=== PATIENT | female | born 1980 | race Hispanic/Latino ===

== ENCOUNTER 2019-08-28 04:41 | Inpatient (IN) | payer MEDICAID, OTHER ==
[~2019-08-28] VITALS: Ht 152.4 cm; Wt 83.5 kg
[2019-08-28] MEDS ORDERED: PREN-196 PO (04:59)
[2019-08-28] MEDS ORDERED: LACTATED RINGERS 1000ML IV PRN (05:00)
[2019-08-28 05:16] LABS: APPEARANCE,URINE Error (CLEAR); BILIRUBIN,URINE Negative (NEGATIVE); COLOR,URINE Yellow (YELLOW); GLUCOSE, URINE (UA) Negative (NEGATIVE); KETONES,URINE Negative (NEGATIVE); LEUKOCYTE ESTERASE ,URINE Small (NEGATIVE); NITRATE,URINE Negative (NEGATIVE); OCCULT BLOOD,URINE Moderate (NEGATIVE); PH,URINE 6.5 (5.0-8.0); PROTEIN,URINE Trace mg/dL (NEGATIVE)
[2019-08-28 05:24] LABS: AMPHET/METH SCREEN,URINE NEGATIVE (NEGATIVE); BARBITURATE SCREEN, URINE NEGATIVE (NEGATIVE); BENZODIAZEPINES SCREEN,URINE NEGATIVE (NEGATIVE); CANNABINOID SCREEN,URINE POSITIVE (NEGATIVE); COCAINE SCREEN,URINE NEGATIVE (NEGATIVE); OPIATE SCREEN,URINE NEGATIVE (NEGATIVE); PHENCYCLIDINE SCREEN,URINE NEGATIVE (NEGATIVE)
[2019-08-28] MEDS ORDERED: LACTATED RINGERS 1000ML 1,000 ML IV PRN (05:29)
[2019-08-28 05:34] LABS: BACTERIA,URINE Moderate /HPF (None Seen); MUCUS,URINE Few LPF (None Seen)
[2019-08-28] MEDS ORDERED: CALCIUM GLUCONATE 1 GM/10 ML VIAL IV PRN (05:45)
[2019-08-28] MEDS ORDERED: MAGNESIUM 4GM PREMIX 100ML 100 ML IV SCH (05:45)
[2019-08-28] MEDS ORDERED: PHARMACY COMMUNICATION MISC SCH (05:45)
[2019-08-28] MEDS ORDERED: MAGNESIUM 4GM PREMIX 100ML 100 ML IV ONE (05:46)
[2019-08-28] MEDS ORDERED: MAGNESIUM SULFATE 1,000 ML IV ONE (05:46)
[2019-08-28] MEDS ORDERED: AMPICILLIN 2GM+NS 100ML 100 ML IV ONE (05:46)
[2019-08-28] MEDS ORDERED: CELESTONE SOLUSPAN 6 MG/ML 5ML VIAL ONE (05:48)
[2019-08-28 05:51] LABS: HEMATOCRIT 35.6 % (36-48); MEAN CORPUSCULAR HEMOGLOBIN 32.6 pg (27.0-33.0); MEAN CORPUSCULAR HGB CONC 35.1 g/dL (32.0-36.0); MEAN CORPUSCULAR VOLUME 92.9 fL (79-99); PLATELET COUNT (AUTO) 211 K/uL (130-400); RED BLOOD CELL COUNT(AUTO) 3.84 MIL/uL (4.00-5.50); RED CELL DISTRIBUTION WIDTH 13.2 % (11.0-15.5); WHITE BLOOD COUNT (AUTO) 10.8 K/uL (4.8-10.8)
[2019-08-28] MEDS ORDERED: AZITHROMYCIN 250 MG TABLET PO ONE (06:03)
[2019-08-28 06:07] VITALS: BP 120/76
[2019-08-28] MEDS ORDERED: MAGNESIUM SULFATE 1,000 ML IV SCH (06:15)
[2019-08-28] MEDS: AZITHROMYCIN 250 MG TABLET PO SCH (06:22)
[2019-08-28] MEDS ORDERED: PROMETHAZINE HCL 25 MG/ML 1ML AMPULE IM SCH ×2 (10:30→14:00)
[2019-08-28] MEDS: MEPERIDINE-PF 50 MG/ML SYG IVP SCH ×2 (10:31→14:28)
[2019-08-28] MEDS: AMPICILLIN 2GM+NS 100ML 100 ML IV SCH ×2 (11:42→17:49)
[2019-08-28 12:19] LABS: MAGNESIUM 5.1 mg/dL (1.80-2.40)
[2019-08-28] MEDS ORDERED: AZITHROMYCIN 250 MG TABLET PO SCH (13:00)
[2019-08-28] MEDS ORDERED: MEPERIDINE-PF 50 MG/ML SYG IVP ONE (14:00)
[2019-08-28] MEDS ORDERED: OXYTOCIN-LR 20 UNITS/1000 ML 1,000 ML IV ONE (16:43)
[2019-08-28] MEDS ORDERED: EPHEDRINE SULFATE 50 MG/ML AMPULE IVP PRN (17:15)
[2019-08-28] MEDS ORDERED: NALOXONE HCL 0.4 MG/1 ML ML IV PRN (17:15)
[2019-08-28] MEDS ORDERED: ROPIVACAINE 0.2% 100ML VIAL 100 ML EP SCH (17:15)
[2019-08-28] MEDS ORDERED: OXYTOCIN-LR 20 UNITS/1000 ML 1,000 ML IV SCH (17:15)
[2019-08-28] MEDS ORDERED: LACTATED RINGERS 500 ML 500 ML IV PRN (17:15)
[2019-08-28] MEDS ORDERED: ACETAMINOPHEN 325 MG TAB PO PRN (18:30)
[2019-08-28] MEDS ORDERED: DIPH,PERTUSS(ACELL),TET VAC/PF 0.5 ML VIAL IM PRN (18:30)
[2019-08-28] MEDS ORDERED: BENZOCAINE/LANOLIN/ALOE VERA 60 ML AEROSOL TP PRN (18:30)
[2019-08-28] MEDS ORDERED: MEASLES/MUMPS/RUBELLA VACCINE, LIVE 0.5 ML/VIAL SQ PRN (18:30)
[2019-08-28] MEDS ORDERED: WITCH HAZEL 1 PAD TP PRN (18:30)
[2019-08-28] MEDS ORDERED: LANOLIN 30GM OINTMENT TP PRN (18:30)
[2019-08-28] MEDS ORDERED: ACETAMINOPHEN-CODEINE 300/30MG TAB PO PRN (18:30)
[2019-08-28] MEDS: OXYTOCIN-LR 20 UNITS/1000 ML 1,000 ML IV SCH ×2 (18:58→20:30)
[2019-08-28] MEDS: DOCUSATE SODIUM 100 MG CAP PO SCH (20:40)
[2019-08-28] MEDS: IBUPROFEN 600 MG TABLET PO PRN (20:40)
[2019-08-28 21:45] VITALS: BP 138/81
--- NOTE | 2019-08-28 22:15 | NUR ---
Explaining plan of care in post period; informing of DVT risk due to swelling, and , encouraging TEDS, pt voices understanding & states "I will put them on later"; Reinforcing teaching on plan for pumping breast to stimulate production & save for baby; encouraging to let us know when ready for pumping; pt voices understanding & agrees to plan. Teaching on prn meds for pain ordered & scheduled stool softener due in am; pt agrees to plan. Addendum: 08/28/19 at 2350 by VINICIO BLACKWELL RN RN Amended: Links added.
--- NOTE | 2019-08-28 22:18 | NUR ---
Transferring from [facility] to [facility] [address] via wheelchair after visiting in NBN-Level II. Orienting to room, nurse call button & instructing to call for assistance to bathroom or for any concerns, Pt voices understanding & agrees to plan. Bed is down, wheels locked, side rails up x 2, and nurse/tv button in bed with pt. Addendum: 08/28/19 at 2220 by VINICIO BLACKWELL RN RN Amended: Links added.
--- NOTE | 2019-08-28 22:22 | NUR ---
TEDS removed for comfort; encouraging reapplying TEDS due to edema, pt voices understanding & states "i will let you know when I need them" Addendum: 08/28/19 at 2229 by VINICIO BLACKWELL RN RN Amended: Links added.
[2019-08-29 00:15] VITALS: BP 124/78
--- NOTE | 2019-08-29 00:30 | NUR ---
Encouraging breast pumping for colostrum, pt agrees. Breast pump brought to bedside; instructing on hand expression & use of pump, providing demonstration of hand expression, pt voices understanding. Offering privacy during procedure & instructing to call for assistance or for any questions or concerns, pt agrees to plan. Addendum: 08/29/19 at 0053 by VINICIO BLACKWELL RN RN Amended: Links added.
--- NOTE | 2019-08-29 02:07 | NUR ---
Asleep, even unlabored respirations noted. Call light button in bed with pt. Addendum: 08/29/19 at 0208 by VINICIO BLACKWELL RN RN Amended: Links added.
[2019-08-29 04:17] VITALS: BP 133/65
--- NOTE | 2019-08-29 04:21 | NUR ---
Encouraging to attempt hand expression of colostrum, pt voices understanding & agrees, states "i was so tired, I had not slept since yesterday when my water broke, but I will try now" offering assistance, pt refusing, requesting privacy & provided. Addendum: 08/29/19 at 0422 by VINICIO BLACKWELL RN RN Amended: Links added.
[2019-08-29] MEDS: AZITHROMYCIN 250 MG TABLET PO SCH (04:23)
[2019-08-29] MEDS: IBUPROFEN 600 MG TABLET PO PRN ×3 (04:25→18:41)
[2019-08-29] MEDS ORDERED: AZITHROMYCIN 250 MG TABLET PO SCH (05:45)
[2019-08-29] MEDS ORDERED: CELESTONE SOLUSPAN 6 MG/ML 5ML VIAL IM SCH (06:00)
--- NOTE | 2019-08-29 06:15 | NUR ---
Pt reports unable to obtain breast milk on first attempt; states "i will try later"; offering support & assistance, and informing Allen Field RN product marketing consultant can assist pt if she desires; pt voices understanding & denies need for assistance at present.
[2019-08-29 07:10] VITALS: BP 135/81
[2019-08-29 08:01] LABS: HEMATOCRIT 34.8 % (36-48); MEAN CORPUSCULAR HEMOGLOBIN 31.7 pg (27.0-33.0); MEAN CORPUSCULAR HGB CONC 33.7 g/dL (32.0-36.0); MEAN CORPUSCULAR VOLUME 94.1 fL (79-99); PLATELET COUNT (AUTO) 206 K/uL (130-400); RED CELL DISTRIBUTION WIDTH 13.4 % (11.0-15.5); WHITE BLOOD COUNT (AUTO) 19.9 K/uL (4.8-10.8)
[2019-08-29] MEDS: DOCUSATE SODIUM 100 MG CAP PO SCH ×2 (08:42→20:26)
--- NOTE | 2019-08-29 10:00 | NUR ---
REPORT RECEIVED FROM Omero VILLEDA RN AND PATIENT CARE TRANSFERED AT THIS TIME. PATIENT NOT IN ROOM SO WENT TO NURSERY WHERE PATIENT IS VISITING AND TOOK LAB ID NUMBER TO REQUEST RHOGAM NEEDED.
--- NOTE | 2019-08-29 10:12 | NUR ---
+UDS ON 03/31/19 AND DELIVERY Sw met with pt who states she is to Rah Jean-Baptiste (36) 07[birth year]27[birth year]83 and they have 3 sons, Melo (21) Ricky (15) and NB, who does not have name yet. Pt states baby came early @ 32 weeks and they were not prepared. They are still trying to decided on name and having nothing for baby at this time. "We thought we had more time, but he had other plans". Pt is an 1ST [employer] at [employer], independent, drives, has Medicaid and WIC. is unemployed. Pt denies any hx of abuse, domestic violence, mental health, or CPS issues.Pt does have hx of arrest, but states it was dismissed. 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 Pt states he smokes it so she would take a "puff" to help with nausea. Pt last smoked 3 weeks ago. Pt was confirmed in February and admits using during . My smokes so I was exposed to 2nd hand smoke. Pt understanding of CPS reporting and will cooperate.Pt denies need for referral or intervention for THC abuse. baby was negative UDS. CPS report made to [facility] arango [id number] ID# [id number] Addendum: 08/29/19 at 1025 by LUIZ NEWTON Amended: Links added.
--- NOTE | 2019-08-29 10:35 | NUR ---
PATIENT CALLED RE RHOGAM INJECTION NEEDED TO BE ADMINISTERED.
--- NOTE | 2019-08-29 11:00 | NUR ---
PATIENT GIVEN HER RHOGAM INJECTION TO RIGHT GLUTEAL. TOLERATED WELL.
[2019-08-29 12:00] VITALS: BP 126/79
--- NOTE | 2019-08-29 14:00 | NUR ---
CPS BOOT REPAIRER, LEISA HOWARD IN TO TALK TO PATIENT. TAKEN TO PATIENT'S ROOM AT THIS TIME.
--- NOTE | 2019-08-29 14:38 | NUR ---
CPS SW recd call from Beryr Aquino [id number], CPS jenae. He will be by later today to see mom and baby. DCP pending safety plan.
--- NOTE | 2019-08-29 14:45 | NUR ---
MR. LEISA HOWARD, CPS SECRETARY CAME BY NURSES STATION AND WAS DIRECTED TO NURSERY TO TALK TO BABY'S NURSE.
--- NOTE | 2019-08-29 14:48 | NUR ---
CPS SW recd call from Berry Aquino [id number], CPS jenae. He will be by later today to see mom and baby. DCP pending safety plan.
--- NOTE | 2019-08-29 18:40 | NUR ---
PATIENT BACK FROM NURSERY AND C/O PAIN OF 3. WAS MEDICATED WITH MOTRIN 600MGS FOR CRAMPING. PATIENT IS STABLE AND HAS BEEN IN NURSERY FOR THE LAST 2 HOURS.
[2019-08-29 20:00] VITALS: BP 144/66
[2019-08-29 23:45] VITALS: BP 121/83
[2019-08-30 03:20] VITALS: BP 132/69
--- NOTE | 2019-08-30 06:25 | NUR ---
COMFORT RESTED W/O ANY COMPLAINTS Addendum: 08/30/19 at 0626 by TEMO MOE LVN Amended: Links added.
[2019-08-30] MEDS: IBUPROFEN 600 MG TABLET PO PRN (07:27)
[2019-08-30 07:30] VITALS: BP 146/78
[2019-08-30] MEDS: DOCUSATE SODIUM 100 MG CAP PO SCH (08:48)
--- NOTE | 2019-08-30 12:15 | NUR ---
PHYSICIAN ROUNDING DR. JEREMY DEWITT AT BEDSIDE TO ASSESS AND TALK TO PT. NEW ORDERS RECEIVED FOR DISCHARGE.
--- NOTE | 2019-08-30 14:50 | NUR ---
DISCHARGE PT LEFT UNIT VIA WHEELCHAIR, ACCOMPANIED BY FAMILY. BABY TO STAY IN NURSERY FOR CONTINUITY OF CARE. DENIED PAIN AND HAD NO COMPLAINTS. TRANSPORTED BY PERSONAL VEHICLE.
== END 2019-08-30 14:50 | disposition home or self-care (01) | DRG 560 ==
LOC: EDH 04:41 → LDH 04:42 → OBSVTOIN 04:42 → WSH 21:45
PROC: 10E0XZZ Delivery of Products of Conception, External Approach (ICD-10-PCS; principal; 2019-08-28)
PROC: 3E0R3BZ Introduction of Anesthetic Agent into Spinal Canal, Percutaneous Approach (ICD-10-PCS; 2019-08-28)
PROC: 00HU33Z Insertion of Infusion Device into Spinal Canal, Percutaneous Approach (ICD-10-PCS; 2019-08-28)
PROC: 3E0234Z Introduction of Serum, Toxoid and Vaccine into Muscle, Percutaneous Approach (ICD-10-PCS; 2019-08-28)
PROC: 3E0134Z Introduction of Serum, Toxoid and Vaccine into Subcutaneous Tissue, Percutaneous Approach (ICD-10-PCS; 2019-08-28)
PROC: 3E0234Z Introduction of Serum, Toxoid and Vaccine into Muscle, Percutaneous Approach (ICD-10-PCS; 2019-08-29)
DX: O60.14X0 Preterm labor third trimester with preterm delivery third trimester, not applicable or unspecified (principal); Z37.0 Single live birth; O24.420 Gestational diabetes mellitus in childbirth, diet controlled; O26.893 Other specified pregnancy related conditions, third trimester; Z3A.32 32 weeks gestation of pregnancy; Z23 Encounter for immunization; Z67.41 Type O blood, Rh negative
CPT/HCPCS: 36415; 76805; 80305; 81001; 82947; 83033; 83735; 85027; 86592; 86701; 86850; 86870; 86900; 86901; 87340; 87390; 88307; A4314; G0378; J0290; J0702; J2175; J2550; J2590; J2791; J3475; J7120

== ENCOUNTER 2019-10-18 06:56 | Day surgery (SDC) | payer MEDICAID ==
[2019-10-17 12:18] LABS: BASOPHILS % (AUTO) 0.9 % (0.0-5.0); EOSINOPHILS % (AUTO) 1.2 % (0.0-8.0); HEMATOCRIT 37.3 % (36-48); LYMPHOCYTES % (AUTO) 35.2 % (21.0-51.0); MEAN CORPUSCULAR HEMOGLOBIN 30.5 pg (27.0-33.0); MEAN CORPUSCULAR VOLUME 89.4 fL (79-99); MONOCYTES % (AUTO) 6.7 % (3.0-13.0); NEUTROPHILS % (AUTO) 55.5 % (40.0-77.0); PLATELET COUNT (AUTO) 291 K/uL (130-400); RED BLOOD CELL COUNT(AUTO) 4.17 MIL/uL (4.00-5.50); RED CELL DISTRIBUTION WIDTH 11.9 % (11.0-15.5); WHITE BLOOD COUNT (AUTO) 5.6 K/uL (4.8-10.8)
[2019-10-17 13:34] VITALS: BP 140/72
[~2019-10-18] VITALS: Ht 152.4 cm; Wt 73.3 kg
[2019-10-18] VITALS (17 sets, daily range): BP systolic 121–167; BP diastolic 71–87
[~2019-10-18 06:56] MED LIST: CALDOLOR 800MG+NS 250ML 250 ML IV SCH; LACTATED RINGERS 1000ML 1,000 ML IV SCH
[2019-10-18] MEDS ORDERED: LIDOCAINE 1%-EPI 1:100,000 20 ML VIAL IJ ONE (08:26)
[2019-10-18] MEDS ORDERED: BUPIVACAINE/PF 0.25% 30ML VIAL IJ ONE (08:27)
[2019-10-18] MEDS ORDERED: DEXAMETHASONE SOD PHOSPHATE 10MG/ML 1ML VIAL ONE (08:34)
[2019-10-18] MEDS ORDERED: SUCCINYLCHOLINE 200MG/10ML SYR ONE (08:34)
[2019-10-18] MEDS ORDERED: NEOSTIGMINE 5MG/5ML SYR IV ONE (08:34)
[2019-10-18] MEDS ORDERED: MIDAZOLAM HCL 1 MG/ML 2ML VIAL ONE (08:34)
[2019-10-18] MEDS ORDERED: PROPOFOL 10 MG/ML 20ML VIAL IV ONE (08:34)
[2019-10-18] MEDS ORDERED: LIDOCAINE PF 2% 5ML ABBOJECT ONE (08:34)
[2019-10-18] MEDS ORDERED: GLYCOPYRROLATE 1 MG/5 ML SYRINGE ONE (08:34)
[2019-10-18] MEDS ORDERED: ROCURONIUM 10MG/1ML SYR 10 MG/ML ML ONE (08:35)
[2019-10-18] MEDS ORDERED: FENTANYL CITRATE PF 50 MCG/1 ML 2ML VIAL ONE ×2 (09:11→10:16)
--- NOTE | 2019-10-18 11:25 | NUR ---
RECEIVE PT RECEIVED FROM PACU VIA STRETCHER AWAKE ALERT ORIENTED X3. PT STABLE. NO COMPLAINTS MADE. INCISIONS X2 LOWER ABD, UMBILICAL AREA WITH DERMABOND DRY AND INTACT, NO OOZING NOTED, OB PAD DRY, NO BLEEDING NOTED. CALL [facility]OS WITHIN REACH. WILL CONTINUE TO MONITOR PT.
--- NOTE | 2019-10-18 12:10 | NUR ---
NOTE PT MEETS CRITERIA FOR DISCHARGE. WAITING FOR SON, FOR RIDE HOME AND DISCHARGE INSTRUCTIONS.
--- NOTE | 2019-10-18 12:25 | NUR ---
DISCHARGE SON HERE. DISCHARGE INSTRUCTIONS GIVEN TO PT AND SON, BOTH VERBALIZED UNDERSTANDING. PT DISCHARGED VIA WHEELCHAIR WITH SON. PT STABLE, NO COMPLAINTS MADE.
== END 2019-10-18 12:25 | disposition home or self-care (01) ==
LOC: DAH 06:56
DX: Z30.2 Encounter for sterilization (principal); N83.8 Other noninflammatory disorders of ovary, fallopian tube and broad ligament; Z85.3 Personal history of malignant neoplasm of breast; Z98.890 Other specified postprocedural states; Z72.89 Other problems related to lifestyle; Z83.3 Family history of diabetes mellitus; Z82.49 Family history of ischemic heart disease and other diseases of the circulatory system
CPT/HCPCS: 36415; 58670; 84703; 85025; 96365; A4215 ×2; A4221; A4222; A4223; A4351; A4663; A4930; A6260; C1769 ×2; J0330; J1100; J1741; J2001; J2250; J2704; J2710; J3010 ×2; J3490 ×2; J7030; J7120